=== PATIENT | male | born 1985 | race Caucasian/White ===

== ENCOUNTER 2018-06-29 23:27 | Emergency (ER) | payer OTHER ==
[2018-06-30] MEDS ORDERED: AZITHROMYCIN 250 MG TAB PO ONE (00:40)
--- NOTE | 2018-06-30 00:43 | EDPHY ---
H & P Stated Complaint: ?std Time Seen by Provider: 06/30/18 00:23 HPI/ROS: HPI The patient presents with penile discharge which has been present for the last 4 -5 days which is yellowish. He does not have any dysuria or hematuria. He has had new sexual partner over the last few weeks. He has receptive of anal intercourse, has had oral intercourse. He has a history of chlamydia. He is taking prophylactic Truvada. REVIEW OF SYSTEMS 10 systems were reviewed and negative with the exception of the elements mentioned in the history of present illness. 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 PHYSICAL General Appearance: Alert, no distress Eyes: Pupils equal and round no pallor or injection ENT, Mouth: Mucous membranes moist Respiratory: Breathing comfortably Neurological: A&O, moves all extremities Skin: Warm and dry, no rashes Psychiatric: Patient is oriented X 3, there is no agitation Source: Patient Exam Limitations: No limitations - Personal History Current Tetanus/Diphtheria Vaccine: Yes - Medical/Surgical History Hx Asthma: No Hx Chronic Respiratory Disease: No Hx Diabetes: No Hx Cardiac Disease: No Hx Renal Disease: No Hx Cirrhosis: No Hx Alcoholism: No Hx HIV/AIDS: No Hx Splenectomy or Spleen Trauma: No Constitutional: Initial Vital Signs Temperature (C) 36.9 C 06/29/18 23:31 Heart Rate 61 06/29/18 23:31 Respiratory Rate 18 06/29/18 23:31 O2 Sat (%) 96 06/29/18 23:31 O2 Delivery Mode Room Air Allergies/Adverse Reactions: No Known Allergies Allergy (Unverified 06/29/18 23:31) Home Medications: Medication Instructions Recorded Truvada 100 mg-150 mg Tablet 06/29/18 Medical Decision Making Differential Diagnosis: 33-year-old male presents with penile discharge with new sexual partners. Plan for treatment with azithromycin and ceftriaxone. Plan for testing for chlamydia , gonorrhea, syphilis. - Data Points Laboratory Results: 06/30/18 06/30/18 00:55 00:45 Syphilis IgG/IgM Ab NONREACTIVE (NONREACTIVE) C.trachomatis RNA (TMA) Pending N.gonorrhoeae RNA (TMA) Pending Medications Given: Discontinued Medications Azithromycin (Zithromax) 1,000 mg PO EDNOW ONE PRN Reason: Protocol Stop: 06/30/18 00:41 Last Admin: 06/30/18 01:21 Dose: 1,000 mg Ceftriaxone Sodium (Rocephin Im Syringe) 250 mg IM ONCE ONE PRN Reason: Protocol Stop: 06/30/18 00:41 Last Admin: 06/30/18 01:21 Dose: 250 mg Departure - Departure Disposition: Home, Routine, Self-Care Clinical Impression: Penile discharge Condition: Good Instructions: Sexually Transmitted Diseases (ED), Safe Sex (ED) Additional Instructions: Your test results should be back in about 48 hr. You can call the emergency department to get those results if you wish. We will contact you if the results are positive. Referrals: NONE *PRIMARY CARE P,. [Primary Care Provider] - As per Instructions
[2018-06-30 01:32] VITALS: BP 116/78
[2018-06-30 10:50] LABS: GC AMPLIFICATION GENPROBE NEGATIVE (NEGATIVE)
== END 2018-06-30 01:32 | disposition home or self-care (01) ==
DX: R36.9 Urethral discharge, unspecified (principal)
CPT/HCPCS: J0696

== ENCOUNTER → 2018-07-31 | Outpatient (CLI) | payer OTHER | LOC: FIMAGING 08:17 | PROVIDERS: ATTEND Family Medicine | DX: R68.84 Jaw pain (principal) ==